=== PATIENT | female | born 2000 | race Two or more races ===

== ENCOUNTER → 2024-07-02 | Emergency (ER) | payer OTHER ==
[~2024-07-02] VITALS: Ht 167.6 cm; Wt 59.0 kg
[~2024-07-02] MED LIST: ABSORICA20 MG PO; CEFTRIAXONE SODIUM 1,000 MG VIAL IM ONE; CEFTRIAXONE SODIUM 1,000 MG VIAL ONE; FAMOTIDINE/PF 20 MG/2 ML VIAL ONE; FAMOtidine 10 MG/ML (4ML VIAL) IV PUSH ONE; METHYLPREDNISOLONE SOD SUCC 40 MG VIAL IM ONE; METHYLPREDNISOLONE SOD SUCC 40 MG VIAL ONE
[2024-07-02 15:13] LABS: HEMATOCRIT 35.7 % (36.0-45.00); HEMOGLOBIN 12.6 g/dL (12.0-15.00); MEAN CELL VOLUME 85.8 fL (80.00-100.00); MEAN CORPUSCULAR HEMOGLOBIN 30.4 pg (27.00-32.0); MEAN CORPUSCULAR HGB CONC 35.4 g/dl (32.0-36.0); PLATELET COUNT 194 K/uL (150-450); RED BLOOD COUNT 4.16 M/uL (4.00-6.00); RED CELL DISTRIBUTION WIDTH 13.5 % (11.5-14.5)
== END | disposition left against medical advice (07) ==
LOC: ER 12:32
PROVIDERS: General Practice
DX: R21 Rash and other nonspecific skin eruption (principal)